=== PATIENT | female | born 1995 | race Two or more races ===

== ENCOUNTER 2024-02-24 10:48 | Emergency (ER) | payer MEDICAID, OTHER ==
[~2024-02-24] VITALS: Ht 157.5 cm; Wt 65.7 kg
[2024-02-24 12:39] VITALS: BP 138/88; PULSE 88; RESP 18; TEMP 98.7; O2SAT 100
== END 2024-02-24 12:41 | disposition home or self-care (01) ==
LOC: ER 10:48
DX: S20.219A Contusion of unspecified front wall of thorax, initial encounter (principal); I49.9 Cardiac arrhythmia, unspecified; F12.10 Cannabis abuse, uncomplicated; W22.8XXA Striking against or struck by other objects, initial encounter; Y93.89 Activity, other specified; Y92.89 Other specified places as the place of occurrence of the external cause; Y99.8 Other external cause status
CPT/HCPCS: 71046

== ENCOUNTER 2025-02-23 19:06 | Emergency (ER) | payer MEDICAID ==
[~2025-02-23] VITALS: Ht 157.5 cm; Wt 61.3 kg
[2025-02-23 20:11] VITALS: BP 114/71; PULSE 91; RESP 16; TEMP 98.8; O2SAT 96
[2025-02-23 20:15] LABS: Urine Bacteria None Seen /hpf (None Seen)
[2025-02-23 20:30] LABS: Urine Blood Negative /uL (Negative); Urine Clarity Clear (Clear); Urine Color Light-Yellow (Yellow); Urine Protein, UAD Negative (Negative); Urine Specific Gravity 1.016 (1.001-1.035); Urine Squamous Epithelial Cell FEW /hpf (<5); Urine Urobilinogen Normal (Negative); Urine WBC < 1 /HPF (0-5)
[2025-02-23] MEDS: ACETAMINOPHEN 325 MG TAB PO ONE (20:50)
--- NOTE | 2025-02-23 21:00 | ED.PDOC ---
HPI (NEURO) HPI Comments 29 year old female presents to ER with complaints of headache x 3 days. Patient reports that she's been experiencing intermittent frontal headache with associated intermittent n/v with her headaches x 3 days. She rates her current pain a 10/10 diffuse to front of forehead without radiation. States she's taken Tylenol for her pain without relief. Patient also reports that she found out she was with an at home test in October of this year but never followed up with a provider with regards to her , denying any abdominal/pelvic pain or vaginal bleeding. Patient presents to ER ambulatory on arrival, alert oriented x4, with steady gait, in no distress with vitals stable. LMP 09/09/24. Denies fever, dizziness, vision changes, head injury, numbness/tingling or any further symptoms/complaints Chief Complaint: Headache Time Seen by MD: 20:04 Primary Care Provider: [facility] Reviewed Notes: Nurses Notes, Medications, Allergies Information Source: Patient Mode of Arrival: Ambulatory Past Medical History PAST MEDICAL HISTORY: HTN Past Medical History (Other): ADHD Surgical History: RADIATION CONTROL TECHNICIAN History: No Pertinent RADIATION CONTROL TECHNICIAN History LMP 09-08-25 Family History Family History: Unknown Social History Smoker: Non-Smoker Alcohol: Occasionally Drugs: Marijuana Lives In: Home Constitutional: denies: chills, diaphoresis, fatigue, fever, malaise, sweats, weakness, others EENTM: denies: blurred vision, double vision, ear bleeding, ear discharge, ear drainage, ear pain, ear ringing, eye pain, eye redness, hearing loss, mouth pa in, mouth swelling, nasal discharge, nose bleeding, nose congestion, nose pain, photophobia, tearing, throat pain, throat swelling, voice changes, others Respiratory: denies: cough, hemoptysis, orthopnea, SOB at rest, shortness of breath, SOB with excertion, stridor, wheezing, others Cardiovascular: denies: chest pain, dizzy spells, diaphoresis, Dyspnea on exertion, edema, irregular heart beat, left arm pain, lightheadedness, palpitations, PND, syncope, others Gastrointestinal: denies: abdomen distended, abdominal pain, blood streaked bowels, constipated, diarrhea, dysphagia, difficulty swallowing, hematemesis, melena, nausea, poor appetite, poor fluid intake, rectal bleeding, rectal pain, vomiting, others Genitourinary: reports: others (As stated in HPI) Neurological: denies: dizziness, fainting, headache, left sided numbness, left sided weakness, numbness, paresthesia, pre-existing deficit, right sided numbness, right sided weakness, seizure, speech problems, tingling, tremors, weakness, others Musculoskeletal: denies: back pain, gout, joint pain, joint swelling, muscle pain, muscle stiffness, neck pain, others Integumetry: denies: bruises, change in color, change in hair/nails, dryness, laceration, lesions, lumps, rash, wounds, others Allergic/Immunocompromised: denies: Difficulty Healing, Frequent Infections, Hives, Itching, others Hematologic/Lymphatic: denies: anemia, blood clots, easy bleeding, easy bruising, swollen glands, others Endocrine: denies: excessive hunger, excessive sweating, excessive thirst, excessive urination, flushing, intolerance to cold, intolerance to heat, unexplained weight gain, unexplained weight loss, others Psychiatric: denies: anxiety, bipolar disorder, depression, hopeless, panic disorder, schizophrenia, sleepless, suicidal, others Physical Exam General Appearance: No Apparent Distress HEENT: Normal ENT Inspection, PERRL/EOMI, Pharynx Normal, TMs Normal Neck: Full Range of Motion, Non-Tender, Normal Respiratory: Chest Non-Tender, Lungs Clear, No Accessory Muscle Use, No Respiratory Distress, Normal Breath Sounds Cardiovascular: No Murmur, No Gallop, Regular Rate/Rhythm Breast Exam: Deferred Gastrointestinal: Non Tender, No Pulsatile Mass, Soft Genitalia: Deferred Pelvic: Deferred Rectal: Deferred Extremities: Normal capillary refill, Normal range of motion Neurologic: Alert, mechanical engineering advisor II-XII nml as Tested, No Motor Deficits, Normal Affect, Normal Mood, No Sensory Deficits Cerebellar Function: Normal Reflexes: Normal Skin: Dry, Normal Color, Warm Lymphatic: No Adenopathy Was a procedure done? Was a procedure done?: No Sedation Sedation?: No Differential Diagnosis (SZ) Headache: Intracerebral Hemorrhage, Subarachnoid Hemorrhage, Subdural Hemorrhage X-Ray, Labs, Meds, VS Vital Signs Date Time Temp Pulse Resp B/P (MAP) Pulse Ox O2 Delivery O2 Flow Rate FiO2 02/23/25 20:11 98.8 91 16 114/71 (85) 96 98.8 02/23/25 20:11 Room Air* 0 21 02/23/25 19:48 98.8 91 16 114/71 (85) 96 98.8 Lab Test 02/23/25 20:49 02/23/25 20:14 Range/Units White Blood Count 6.8 4.4-10.8 10^3/uL Red Blood Count 3.55 L 4.0-5.20 10^6/uL Hemoglobin 12.1 L 12.2-16.2 g/dL Hematocrit 34.0 L 36.0-46.0 % Mean Corpuscular Volume 95.9 80.0-100.0 fL Mean Corpuscular Hemoglobin 34.0 H 28.0-32.0 pg Mean Corpuscular Hemoglobin Concent 35.5 32.0-36.0 g/dL Red Cell Distribution Width 12.2 11.8-14.3 % Platelet Count 311 140-450 10^3/uL Mean Platelet Volume 6.9 6.9-10.8 fL Neutrophils (%) (Auto) 69.2 37.0-80.0 % Lymphocytes (%) (Auto) 22.3 10.0-50.0 % Monocytes (%) (Auto) 6.5 0.0-12.0 % Eosinophils (%) (Auto) 1.4 0.0-7.0 % Basophils (%) (Auto) 0.6 0.0-2.0 % Neutrophils # (Auto) 4.7 1.6-8.6 10 ^3/uL Lymphocytes # (Auto) 1.5 0.4-5.4 10 ^3/uL Monocytes # (Auto) 0.4 0-1.3 10 ^3/uL Eosinophils # (Auto) 0.1 0-0.8 10 ^3/uL Basophils # (Auto) 0 0-0.2 10 ^3/uL Nucleated Red Blood Cells 0.0 % Sodium Level 141 136-145 mmol/L Potassium Level 4.0 3.5-5.1 mmol/L Chloride Level 107 98-107 mmol/L Carbon Dioxide Level 25 20-31 mmol/L Anion Gap 9 5-15 Blood Urea Nitrogen 9 9-23 mg/dL Creatinine 0.62 0.550-1.02 mg/dL Glomerular Filtration Rate Calc 124 >90 mL/min BUN/Creatinine Ratio 14.5 10.0-20.0 Serum Glucose 80 74-106 mg/dL Calcium Level 10.0 8.7-10.4 mg/dL Beta HCG, Quantitative 73416.3 H 1.5-4.2 mIU/mL Treponema pallidum Antibody Non-reactive Negative Urine Color Light-yellow Yellow Urine Clarity Clear Clear Urine pH 7.0 5.0-9.0 Urine Specific [place] 1.016 1.001-1.035 Urine Protein Negative Negative Urine Ketones Negative Negative Urine Blood Negative Negative /uL Urine Nitrite Negative Negative Urine Bilirubin Negative Negative Urine Urobilinogen Normal Negative mg/dL Urine Leukocyte Esterase Negative Negative /uL Urine RBC <1 0 - 4 /hpf Urine Microscopic WBC < 1 0-5 /HPF Urine Squamous Epithelial Cells Few <5 /hpf Urine Bacteria None seen None Seen /hpf Urine Glucose Normal Normal mg/dL Urine Test Positive Negative Current Medications Medications (Trade) Dose Ordered Sig/Rowena Route Start Time Stop Time Status Last Admin Acetaminophen (Tylenol Tablet) 650 mg ONCE ONCE PO 02/23/25 20:45 02/23/25 20:46 DC 02/23/25 20:50 [id number]: [id number] : 1995 LOC: ER ROOM / BED: / AGE / SEX: 29 / F ADM STATUS: REG ER SERVICE 39 ORDERING PHYSICIAN: KEITH SAN PROCEDURE(s): OBUS - OB ULTRASOUND COMP GTR 14 WKS REASON: well being, approx 24 weeks ORDER NUMBER(s): [id number], ACCESSION NUMBER(s): [id number] OB ULTRASOUND, LIMITED CLINICAL INDICATION: well being, approx 24 weeks TECHNIQUE: Multiple grayscale ultrasound and M-mode images were obtained of the pelvis for evaluation of intrauterine . COMPARISON: None FINDINGS: A single living fetus is seen in breech presentation. Biparietal diameter: 2.98 cm (15 weeks, 3 days) Head Circumference: 11.03 cm (13 weeks, 2 days) Abdomen Circumference: 8.02 cm (14 weeks, 3 days) Femur Length: 1.43 cm (14 weeks, 2 days) Estimated weight: 97.4 grams (+/- 14.61 grams). Placenta: Posterior. Amniotic fluid: Visibly normal. Cervical length is 4.2 cm and closed. heart rate: 155 beats/min. A complete anatomic survey was not performed on this exam. IMPRESSION: Single living intrauterine with an estimated gestational age of 14 weeks, 6 days, corresponding to an estimated date of delivery of 08/18/2025. ATED BY: JOHN HERNANDEZ MD DICTATED DATE/TIME: 02/23/252134 SIGNED BY: JOHN HERNANDEZ MD SIGNED DATE/TIME: 02/23/252134 CC: Urine reviewed-positive Urinalysis reviewed without any significant abnormalities CBC reviewed-without any significant abnormalities BMP reviewed- unremarkable Syphilis screening ordered and reviewed, non-reactive- patient denied any known exposure to syphillis but states she has not followed-up with a provider with regards to current OB ultrasound reviewed Tylenol 650 mg p.o. ordered Patient reported improvement in symptoms and in no distress prior to discharge Patient provided information with regards to local OBGYNs and advised to follow up in 1-2 days Advised to follow up with PCP in 1-2 days Patient alert and oriented x4 prior to discharge. Patient verbalized understanding and agreeable with current plan of care Advised to return to ER immediately if symptoms worsen Images Reviewed?: Images reviewed and evaluated by me Time of 1ST Reevaluation: 20:44 Reevaluation 1ST: N/A Time of 2ND Reevaluation: 21:48 Reevaluation 2ND: Improved Patient Education/Counseling: Diagnosis, Treatment, Prognosis, Need For Follow Up Family Education/Counseling: No Family Present Departure 1 Departure Time of Disposition: 21:50 Impression: Primary Impression: Tension headache Additional Impression: Second trimester Disposition: 01 HOME / SELF CARE / HOMELESS Condition: Stable Discharged With: Self Critical Care Note Critical Care Time?: No Stability Stability form required: No Heart Score Heart Score: Heart Score Response (Comments) Value History N/A 0 EKG N/A 0 Age N/A 0 Risk Factors N/A 0 Troponin N/A 0 Total 0 KEITH SAN Feb 23, 2025 21:00
[2025-02-23 21:08] LABS: Basophils # (auto) 0 10 ^3/uL (0-0.2); Eosinophils # (auto) 0.1 10 ^3/uL (0-0.8); White Blood Cell 6.8 10^3/uL (4.4-10.8)
[2025-02-23 21:10] LABS: Basophils % (auto) 0.6 % (0.0-2.0); Eosinophils % (auto) 1.4 % (0.0-7.0); Hemoglobin 12.1 g/dL (12.2-16.2); Lymphocytes # (auto) 1.5 10 ^3/uL (0.4-5.4); Lymphocytes % (auto) 22.3 % (10.0-50.0); Mean Corpuscular Hgb Conc. 35.5 g/dL (32.0-36.0); Mean Corpuscular Volume 95.9 fL (80.0-100.0); Monocytes # (auto) 0.4 10 ^3/uL (0-1.3); Monocytes % (auto) 6.5 % (0.0-12.0); Neutrophils # (auto) 4.7 10 ^3/uL (1.6-8.6); Neutrophils % (auto) 69.2 % (37.0-80.0); Platelet Count (auto) 311 10^3/uL (140-450); Red Blood Cells 3.55 10^6/uL (4.0-5.20); Red Cell Distribution Width 12.2 % (11.8-14.3)
[2025-02-23 21:11] LABS: Chloride 107 mmol/L (98-107); Sodium 141 mmol/L (136-145)
[2025-02-23 21:12] LABS: Anion Gap 9 (5-15); Carbon Dioxide 25 mmol/L (20-31)
[2025-02-23 21:17] LABS: BUN/Creatinine Ratio 14.5 (10.0-20.0); Glucose 80 mg/dL (74-106)
[2025-02-23 21:19] LABS: Blood Urea Nitrogen 9 mg/dL (9-23)
--- NOTE | 2025-02-23 21:38 | DVH ---
OB ULTRASOUND, LIMITED CLINICAL INDICATION: well being, approx 24 weeks TECHNIQUE: Multiple grayscale ultrasound and M-mode images were obtained of the pelvis for evaluation of intrauterine . COMPARISON: None FINDINGS: A single living fetus is seen in breech presentation. Biparietal diameter: 2.98 cm (15 weeks, 3 days) Head Circumference: 11.03 cm (13 weeks, 2 days) Abdomen Circumference: 8.02 cm (14 weeks, 3 days) Femur Length: 1.43 cm (14 weeks, 2 days) Estimated weight: 97.4 grams (+/- 14.61 grams). Placenta: Posterior. Amniotic fluid: Visibly normal. Cervical length is 4.2 cm and closed. heart rate: 155 beats/min. A complete anatomic survey was not performed on this exam. IMPRESSION: Single living intrauterine with an estimated gestational age of 14 weeks, 6 days, corresp onding to an estimated date of delivery of 08/18/2025.
== END 2025-02-23 21:56 | disposition home or self-care (01) ==
LOC: ER 19:06
DX: O99.352 Diseases of the nervous system complicating pregnancy, second trimester (principal); O16.2 Unspecified maternal hypertension, second trimester; O99.312 Alcohol use complicating pregnancy, second trimester; O99.322 Drug use complicating pregnancy, second trimester; G44.209 Tension-type headache, unspecified, not intractable; F90.9 Attention-deficit hyperactivity disorder, unspecified type; F10.90 Alcohol use, unspecified, uncomplicated; F12.90 Cannabis use, unspecified, uncomplicated; Z3A.14 14 weeks gestation of pregnancy; Z98.890 Other specified postprocedural states; Y90.9 Presence of alcohol in blood, level not specified
CPT/HCPCS: 36415; 76805; 80048; 81001; 81025; 84702; 85025; 86780

== ENCOUNTER 2025-07-04 11:50 | Observation (INO) | payer MEDICAID ==
--- NOTE | 2025-07-04 15:38 | DVH ---
OB ULTRASOUND, LIMITED CLINICAL INDICATION: GDMA1 TECHNIQUE: Multiple grayscale ultrasound and M-mode images were obtained of the pelvis for evaluation of intrauterine . COMPARISON: US OB ULTRASOUND COMP GTR 14 WKS on DOS: 02/23/25 FINDINGS: A single living fetus is seen in cephalic presentation. breathin movements: 2 tone: 2 Amniotic fluid: 2 Placenta: Posterior. Amniotic fluid: Visibly normal. EVER 12.8 cm heart rate: 138 beats/min. A complete anatomic survey was not performed on this exam. IMPRESSION: 1. Biophysical profile: 04/23
--- NOTE | 2025-07-05 06:13 | DVHDS2 ---
Discharge Summary Date of Admission Jul 04, 2025 at 14:22 Date of Discharge: Jul 04, 2025 Admitting Diagnosis GDM A1 33 weeks here for routine NST BPP both performed reassuring Wounds: None Labs/Diagnostic Data: Laboratory Results Test 07/04/25 15:03 POC Glucose 138 mg/dl (70-106) Brief Hx & Hospital Course: NST BPP performed reassuring Operations or Procedures NST BPP Condition at Discharge: Good Final Diagnosis/Problems List 33 weeks GDM A1 Discharge Disposition: Home Discharge Instruct/Medications Diet: Consistent carbohydrate Activity: No Restrictions, As Tolerated Follow Up/Referral: Kick count sleep precautions carbohydrate diet limited Discharge Statement: "Patient was advised to return to the ER or call 911 if any headaches, d izziness, shortness of breath, chest pain, abdominal pain, bleeding, fevers, or worsening of medical condition. Patient was counseled about treatment plan, medications, possible side effects, patientverbalized understanding. All questions were answered to the best of my ability. This discharge took greater then 30 minutes in planning, reviewing documentation, counseling the patient, and discussing with other team members." ASSESSMENT ASSESSMENT Assessment Visit Coding OBGYN Date of Service: Jul 04, 2025 Billing Provider: LYNN CHARLES DO TACTICAL DEBRIEFER Common Visit Codes: 16986-JKX/OBS SAME DATE (LOW), 79512-DZE/OBS SAME DATE (MOD) TACTICAL DEBRIEFER Procedure Codes: 76744-79- NON-STRESS TEST LYNN CHARLES DO Jul 05, 2025 06:13
== END 2025-07-04 15:43 | disposition home or self-care (01) ==
LOC: LDRP 14:22
PROVIDERS: ADMIT Obstetrics & Gynecology; ATTEND Obstetrics & Gynecology
DX: O24.419 Gestational diabetes mellitus in pregnancy, unspecified control (principal); Z3A.33 33 weeks gestation of pregnancy; Z98.890 Other specified postprocedural states
CPT/HCPCS: 59025; 76819; 81002; 82948; 82962; 94760; G0378

== ENCOUNTER 2025-07-09 05:42 | Observation (INO) | payer MEDICAID ==
--- NOTE | 2025-07-09 16:19 | DVHDS2 ---
Physician Discharge Progress N Final Diagnosis: GDM 34WKS Operations or Procedures: Operations or Procedures NST REACTIVE REVIWED,SONO Condition on Discharge: Good Disposition: Home Discharge Instructions: Diet: Consistent carbohydrate Activity: No Restrictions, As Tolerated Medications: NA Follow Up Care: Specialist: 1W Discharge Statement: "Patient was advised to return to the ER or call 911 if any headaches, dizziness, shortness of breath, chest pain, abdominal pain, bleeding, fevers, or worsening of medical condition. Patient was counseled about treatment plan, medications, possible side effects, patientverbalized understanding. All questions were answered to the best of my ability. This discharge took greater then 30 minutes in planning, reviewing documentation, counseling the patient, and discussing with other team members." Visit Coding OBGYN Date of Service: Jul 09, 2025 Billing Provider: PATTI STEPHENS DO VIBRATOR EQUIPMENT TESTER Common Visit Codes: 73117-JZNUQSF OBS CARE (HIGH) VIBRATOR EQUIPMENT TESTER Procedure Codes: 68721-96- NON-STRESS TEST PATTI STEPHENS DO Jul 09, 2025 16:19
--- NOTE | 2025-07-09 16:37 | DVH ---
BIOPHYSICAL PROFILE HISTORY: GDMA1 TECHNIQUE: Multiple real-time grayscale sonographic images through the gravid uterus of the fetus wi th duplex Doppler color flow. FINDINGS: BIOPHYSICAL PROFILE: breathing score: 2 movement score: 2 tone score: 2 Quantitative EVER score: 2 Total score: 8 out of 8 The placenta is fundally positioned. EVER 25.6 cm. lie cephalic. heart rate 135 beats per minute. IMPRESSION: Biophysical profile score: 8 out of 8 EVER 25.6 cm, previously measuring at 12.8 cm. Correlate for polyhydramnios.
[2025-07-09] MEDS ORDERED: PREN-96 PO (16:39)
== END 2025-07-09 16:46 | disposition home or self-care (01) ==
LOC: UNDOADMOB 15:05 → LDRP 15:05
PROVIDERS: ADMIT Obstetrics & Gynecology; ATTEND Obstetrics & Gynecology
DX: O24.419 Gestational diabetes mellitus in pregnancy, unspecified control (principal); Z3A.34 34 weeks gestation of pregnancy; Z98.890 Other specified postprocedural states
CPT/HCPCS: 59025; 76819; 81002; 82948; 82962; 94760; G0378

== ENCOUNTER 2025-07-13 06:22 | Observation (INO) | payer MEDICAID ==
[~2025-07-13 06:22] MED LIST: PREN-96 PO
--- NOTE | 2025-07-13 17:24 | DVHDS2 ---
Physician Discharge Progress N Final Diagnosis: testing for GDMA1/poly Operations or Procedures: Operations or Procedures 30yo IUP@34.6wks VSS NST reactive BPP 8/8 per RN FKC/PTL/preE precautions reviewed Dr. Alvarez consulted, agrees with POC. Condition on Discharge: Stable Disposition: Home Discharge Instructions: Diet: Consistent carbohydrate Activity: No Restrictions, As Tolerated Medications: see med list Follow Up Care: Specialist: f/u in 3 days Discharge Statement: "Patient was advised to return to the ER or call 911 if any headaches, dizziness, shortness of breath, chest pain, abdominal pain, bleeding, fevers, or worsening of medical condition. Patient was counseled about treatment plan, medications, possible side effects, patientverbalized understanding. All questions were answered to the best of my ability. This discharge took greater then 30 minutes in planning, reviewing documentation, counseling the patient, and discussing with other team members." Visit Coding OBGYN Date of Service: Jul 13, 2025 Billing Provider: HERMINIO SEGOVIA CNM ENGINE PILOT Common Visit Codes: 26311-KUKEXZL OBS CARE (HIGH) ENGINE PILOT Procedure Codes: 06158-52- NON-STRESS TEST HERMINIO SEGOVIA CNM Jul 13, 2025 17:24
--- NOTE | 2025-07-13 20:45 | DVH ---
BIOPHYSICAL PROFILE HISTORY: GDMA1/poly Comparison: 07/13/2025 TECHNIQUE: Multiple transabdominal real-time grayscale sonographic images through the gravid uterus of the fetus with duplex Doppler color flow and M-mode spectral analysis FINDINGS: BIOPHYSICAL PROFILE: breathing score: 2 movement score: 2 tone score: 2 Quantitative EVER score: 2 (EVER: 24.5 Cm.) Total score: 8 The cervix not well-visualized Single live fetus in cephalic presentation. heart rate 149 beats per minute. Grade 1 posterior fundal placenta without previa or abruption IMPRESSION: Biophysical profile score: 8 /8 Borderline polyhydramnios 24.5 cm. Coffee Roaster documented notification of patient's nurse Kim.
== END 2025-07-13 16:34 | disposition home or self-care (01) ==
LOC: UNDOADMOB 15:09 → LDRP 15:09
PROVIDERS: ADMIT Obstetrics & Gynecology; ATTEND Obstetrics & Gynecology
DX: O24.419 Gestational diabetes mellitus in pregnancy, unspecified control (principal); Z3A.34 34 weeks gestation of pregnancy; Z79.899 Other long term (current) drug therapy
CPT/HCPCS: 59025; 76819; 81002; 82948; 82962; 94760; G0378

== ENCOUNTER 2025-07-16 15:06 | Observation (INO) | payer MEDICAID ==
--- NOTE | 2025-07-16 16:15 | DVH ---
BIOPHYSICAL PROFILE HISTORY: GDMA1/Poly TECHNIQUE: Multiple transabdominal real-time grayscale sonographic images through the gravid uterus of the fetus with duplex Doppler color flow and M-mode spectral analysis FINDINGS: BIOPHYSICAL PROFILE: breathing score: 2 movement score: 2 tone score: 2 Quantitative EVER score: 2 (#1AFI: 19.6 Cm, #2 EVER: 17.2 cm MVP: 6.1 cm.) Total score: 8/8 The cervix obscured by head Single live fetus in cephalic presentation. heart rate 143 beats per minute. Posterior Grade 2 placenta without previa or abruption Single live fetus at 35 weeks 2 days Biophysical profile score 8/8 corresponding to an BONNY of 08/18/2025 IMPRESSION: 1. Biophysical profile score: 8/8
== END 2025-07-16 16:29 | disposition home or self-care (01) ==
LOC: LDRP 15:06
PROVIDERS: ADMIT Obstetrics & Gynecology; ATTEND Obstetrics & Gynecology
DX: O24.419 Gestational diabetes mellitus in pregnancy, unspecified control (principal); Z3A.35 35 weeks gestation of pregnancy; Z98.890 Other specified postprocedural states
CPT/HCPCS: 59025; 76819; 81002; 82948; 82962; 94760; G0378

== ENCOUNTER 2025-07-20 06:56 | Observation (INO) | payer MEDICAID ==
--- NOTE | 2025-07-23 17:09 | DVH ---
BIOPHYSICAL PROFILE HISTORY: GDMA1, POLY TECHNIQUE: Multiple real-time grayscale sonographic images through the gravid uterus of the fetus with duplex Doppler color flow. FINDINGS: BIOPHYSICAL PROFILE: breathing score: 2 movement score: 2 tone score: 2 Quantitative EVER score: 2 Total score: 8 out of 8 Single live intrauterine . heart rate 141 beats per minute. Cephalic lie. Placenta fundally positioned. EVER 18.5 cm. IMPRESSION: Biophysical profile score: 8 out of 8
--- NOTE | 2025-07-23 18:48 | DVHDS2 ---
Physician Discharge Progress N Final Diagnosis: GDMA1 Operations or Procedures: Operations or Procedures NST/BPP/EVER all NORMAL Commentary: Commentary PATIENT: SHERRY [place] ACCT: [id number] UNIT: [id number] : 1995 [facility] / BED: TRIAGE3 / A AGE / SEX: 30 / F ADM STATUS: DIS IN SERVICE 1505 ORDERING PHYSICIAN: EDDIE HARMAN DO PROCEDURE(s): BPP - BIOPHYSICAL PROFILE REASON: GDMA1, POLY ORDER NUMBER(s): [id number], ACCESSION NUMBER(s): [id number] BIOPHYSICAL PROFILE HISTORY: GDMA1, POLY TECHNIQUE: Multiple real-time grayscale sonographic images through the gravid uterus of the fetus with duplex Doppler color flow. FINDINGS: BIOPHYSICAL PROFILE: breathing score: 2 movement score: 2 tone score: 2 Quantitative EVER score: 2 Total score: 8 out of 8 Single live intrauterine . heart rate 141 beats per minute. Cephalic lie. Placenta fundally positioned. EVER 18.5 cm. IMPRESSION: Biophysical profile score: 8 out of 8 ATED BY: NIGEL CARTER MD Condition on Discharge: Stable Disposition: Home Discharge Instructions: Diet: Regular, Consistent carbohydrate Activity: No Restrictions, As Tolerated Follow Up/Referral: As scheduled Medications: N/A Follow Up Care: Discharge Statement: "Patient was advised to return to the ER or call 911 if any headaches, dizziness, shortness of breath, chest pain, abdominal pain, bleeding, fevers, or worsening of medical condition. Patient was counseled about treatment plan, medications, possible side effects, patientverbalized understanding. All questions were answered to the best of my ability. This discharge took greater then 30 minutes in planning, reviewing documentation, counseling the patient, and discussing with other team members." Visit Coding OBGYN Date of Service: Jul 23, 2025 Billing Provider: EDDIE HARMAN DO CARBON SETTER Common Visit Codes: 35822-ALT/OBS SAME DATE (HIGH) CARBON SETTER Procedure Codes: 60761-67- NON-STRESS TEST EDDIE HARMAN DO Jul 23, 2025 18:48
== END 2025-07-23 17:10 | disposition home or self-care (01) ==
LOC: LDRP 07-23 15:00 → UNDOADMOB 07-23 15:00 → LDRP 07-23 15:06
PROVIDERS: ADMIT Obstetrics & Gynecology; ATTEND Obstetrics & Gynecology
DX: O24.419 Gestational diabetes mellitus in pregnancy, unspecified control (principal); O40.3XX0 Polyhydramnios, third trimester, not applicable or unspecified; Z3A.36 36 weeks gestation of pregnancy; Z98.890 Other specified postprocedural states
CPT/HCPCS: 59025; 76819; 81002; 82948; 94760; G0378

== ENCOUNTER 2025-07-27 06:15 | Observation (INO) | payer MEDICAID ==
--- NOTE | 2025-07-27 18:23 | DVH ---
BIOPHYSICAL PROFILE HISTORY: GDMA1/POLY TECHNIQUE: Multiple transabdominal real-time grayscale sonographic images through the gravid uterus of the fetus with duplex Doppler color flow and M-mode spectral analysis FINDINGS: BIOPHYSICAL PROFILE: breathing score: 2 movement score: 2 tone score: 2 Quantitative EVER score: 2 (EVER: 11.43 cm, MVP: 4.52 cm.) Total score: 8/8 The cervix Single live fetus in vertex presentation. heart rate 178 beats per minute. Posterior fundal Grade 2 placenta without previa or abruption Single live fetus at 36 weeks 6 days Biophysical profile score 8/8 corresponding to an BONNY of 08/18/2025 Estimated weight not calculated g IMPRESSION: 1. Biophysical profile score: 8/8 2. FHR: 178 BPM 3. No other measurements given
--- NOTE | 2025-07-27 20:04 | DVHDS2 ---
Physician Discharge Progress N Final Diagnosis: testing for GDM A1 Operations or Procedures: Operations or Procedures S- 30yo IUP at 36/6 weeks, here for testing for GDM A1 O- VSS NST reactive BPP 8/8 A- 30yo IUP at 36/6 weeks GDM A1 P- D/C home kick counts, preeclampsia, and labor precautions reviewed Dr. Alvarez consulted and agrees with plan of care Other Interventions Other Interventions [place] [id number] Ph: [phone] DIAGNOSTIC IMAGING Diagnostic Imaging Report : [id number] Signed PATIENT: SHERRY [place] ACCT: [id number] UNIT: [id number] : 1995 LOC: [facility] ROOM / BED: TRIAGE1 / A AGE / SEX: 30 / F ADM STATUS: ADM IN SERVICE 47 ORDERING PHYSICIAN: HERMINIO SEGOVIA CNM PROCEDURE(s): BPP - BIOPHYSICAL PROFILE REASON: GDMA1/POLY ORDER NUMBER(s): [id number], ACCESSION NUMBER(s): [id number] BIOPHYSICAL PROFILE HISTORY: GDMA1/POLY TECHNIQUE: Multiple transabdominal real-time grayscale sonographic images through the gravid uterus of the fetus with duplex Doppler color flow and M-mode spectral analysis FINDINGS: BIOPHYSICAL PROFILE: breathing score: 2 movement score: 2 tone score: 2 Quantitative EVER score: 2 (EVER: 11.43 cm, MVP: 4.52 cm.) Total score: 8/8 The cervix Single live fetus in vertex presentation. heart rate 178 beats per minute. Posterior fundal Grade 2 placenta without previa or abruption Single live fetus at 36 weeks 6 days Biophysical profile score 8/8 corresponding to an BONNY of 08/18/2025 Estimated weight not calculated g IMPRESSION: 1. Biophysical profile score: 8/8 2. FHR: 178 BPM 3. No other measurements given ATED BY: JADE MEDINA Jr., DO DICTATED DATE/TIME: 07/27/251820 SIGNED BY: JADE MEDINA Jr., DO SIGNED DATE/TIME: 11/11/25 1821 CC: Condition on Discharge: Stable Disposition: Home Discharge Instructions: Diet: Consistent carbohydrate Activity: No Restrictions, As Tolerated Medications: see med list Follow Up Care: Specialist: Follow up in one week Discharge Statement: "Patient was advised to return to the ER or call 911 if any headaches, dizziness, shortness of breath, chest pain, abdominal pain, bleeding, fevers, or worsening of medical condition. Patient was counseled about treatment plan, medications, possible side effects, patientverbalized understanding. All questions were answered to the best of my ability. This discharge took greater then 30 minutes in planning, reviewing documentation, counseling the patient, and discussing with other team members." Visit Coding OBGYN Date of Service: Jul 27, 2025 Billing Provider: HERMINIO SEGOVIA CNM TIMBER SELECTOR Common Visit Codes: 04966-YDUSFBP OBS CARE (HIGH) TIMBER SELECTOR Procedure Codes: 22116-66- NON-STRESS TEST HERMINIO SEGOVIA CNM Jul 27, 2025 20:04
== END 2025-07-27 19:12 | disposition home or self-care (01) ==
LOC: LDRP 17:45
PROVIDERS: ADMIT Obstetrics & Gynecology; ATTEND Obstetrics & Gynecology
DX: O24.419 Gestational diabetes mellitus in pregnancy, unspecified control (principal); Z3A.36 36 weeks gestation of pregnancy; Z98.890 Other specified postprocedural states
CPT/HCPCS: 59025; 76819; 81002; 82948; 82962; 94760; G0378

== ENCOUNTER 2025-08-03 06:10 | Observation (INO) | payer MEDICAID ==
--- NOTE | 2025-08-03 16:17 | DVH ---
BIOPHYSICAL PROFILE HISTORY: GDMA1/Poly TECHNIQUE: Multiple real-time grayscale sonographic images through the gravid uterus of the fetus with duplex Doppler color flow. FINDINGS: BIOPHYSICAL PROFILE: breathing score: 2 movement score: 2 tone score: 2 Quantitative EVER score: 2 Total score: 8 out of 8 Single live intrauterine . Cephalic lie. Placenta fundally positioned. EVER 13.8 cm. heart rate of 143 beats per minute. IMPRESSION: Biophysical profile score: 8 out of 8 EVER 13.8 cm.
--- NOTE | 2025-08-03 18:52 | DVHDS2 ---
Physician Discharge Progress N Final Diagnosis: testing for GDM, A1 Operations or Procedures: Operations or Procedures 30yo IUP@37.6wks VSS per RN NST reactive per RN FKC/PreE/LABOR precautions reviewed Other Interventions Other Interventions [address] [address] Ph: [phone] DIAGNOSTIC IMAGING Diagnostic Imaging Report : [id number] Signed PATIENT: SHERRY [place] ACCT: [id number] UNIT: [id number] : 1995 LOC: [facility] ROOM / BED: LD1 / A AGE / SEX: 30 / F ADM STATUS: ADM IN SERVICE 1524 ORDERING PHYSICIAN: HERMINIO SEGOVIA CNM PROCEDURE(s): BPP - BIOPHYSICAL PROFILE REASON: GDMA1/Poly ORDER NUMBER(s): [id number], ACCESSION NUMBER(s): [id number] BIOPHYSICAL PROFILE HISTORY: GDMA1/Poly TECHNIQUE: Multiple real-time grayscale sonographic images through the gravid u terus of the fetus with duplex Doppler color flow. FINDINGS: BIOPHYSICAL PROFILE: breathing score: 2 movement score: 2 tone score: 2 Quantitative EVER score: 2 Total score: 8 out of 8 Single live intrauterine . Cephalic lie. Placenta fundally positioned. EVER 13.8 cm. heart rate of 143 beats per minute. IMPRESSION: Biophysical profile score: 8 out of 8 EVER 13.8 cm. ATED BY: NIGEL CARTER MD DICTATED DATE/TIME: 08/03/251619 SIGNED BY: NIGEL CARTER MD SIGNED DATE/TIME: 08/03/25 162 CC: Condition on Discharge: Stable Disposition: Home Discharge Instructions: Diet: Consistent carbohydrate Activity: No Restrictions, As Tolerated Follow Up/Referral: as scheduled Medications: see med list Follow Up Care: Specialist: f/u in 1 wk Discharge Statement: "Patient was advised to return to the ER or call 911 if any headaches, dizziness, shortness of breath, chest pain, abdominal pain, bleeding, fevers, or worsening of medical condition. Patient was counseled about treatment plan, medications, possible side effects, patientverbalized understanding. All questions were answered to the best of my ability. This discharge took greater then 30 minutes in planning, reviewing documentatio n, counseling the patient, and discussing with other team members." Visit Coding OBGYN Date of Service: Aug 03, 2025 Billing Provider: HERMINIO SEGOVIA CNM AIRCRAFT MAGNETO MECHANIC Common Visit Codes: [id number]-[id number] OBS CARE (HIGH) AIRCRAFT MAGNETO MECHANIC Procedure Codes: 93319-96- NON-STRESS TEST HERMINIO SEGOVIA CNM Aug 03, 2025 18:52
== END 2025-08-03 17:14 | disposition home or self-care (01) ==
LOC: UNDOADMOB 15:07 → LDRP 15:07 → UNDODISOB 17:14
PROVIDERS: ADMIT Obstetrics & Gynecology; ATTEND Obstetrics & Gynecology
DX: O24.419 Gestational diabetes mellitus in pregnancy, unspecified control (principal); Z3A.37 37 weeks gestation of pregnancy; Z98.890 Other specified postprocedural states
CPT/HCPCS: 59025; 76819; 81002; 82948; 82962; 94760; G0378

== ENCOUNTER 2025-08-11 13:02 | Observation (INO) | payer MEDICAID ==
--- NOTE | 2025-08-11 13:58 | DVH ---
BIOPHYSICAL PROFILE HISTORY: GDMA1 TECHNIQUE: Multiple transabdominal real-time grayscale sonographic images through the gravid uterus of the fetus with duplex Doppler color flow and M-mode spectral analysis FINDINGS: BIOPHYSICAL PROFILE: breathing score: 2 movement score: 2 tone score: 2 Quantitative EVER score: 2 (EVER: 10.9 Cm.) Total score: 8 The cervix not well visualized Single live fetus in cephalic presentation. heart rate 146 beats per minute. Grade 2 fundal placenta without previa or abruption. IMPRESSION: Biophysical profile score: 8
--- NOTE | 2025-08-12 07:14 | DVHDS2 ---
Physician Discharge Progress N Final Diagnosis: preop 37wks Operations or Procedures: Operations or Procedures nst reactive reviwed,sono Condition on Discharge: Good Disposition: Home Discharge Instructions: Diet: Regular Activity: No Restrictions, As Tolerated Medications: na Follow Up Care: Specialist: 2d Discharge Statement: "Patient was advised to return to the ER or call 911 if any headaches, dizziness, shortness of breath, chest pain, abdominal pain, bleeding, fevers, or worsening of medical condition. Patient was counseled about treatment plan, medications, possible side effects, patientverbalized understanding. All questions were answered to the best of my ability. This discharge took greater then 30 minutes in planning, reviewing document ation, counseling the patient, and discussing with other team members." Visit Coding OBGYN Date of Service: Aug 11, 2025 Billing Provider: PATTI STEPHENS DO API DEVELOPER Common Visit Codes: [id number] INP/OBS CARE (HIGH) API DEVELOPER Procedure Codes: 75679-69- NON-STRESS TEST PATTI STEPHENS DO Aug 12, 2025 07:14
== END 2025-08-11 14:57 | disposition home or self-care (01) ==
LOC: LDRP 13:02
PROVIDERS: ADMIT Obstetrics & Gynecology; ATTEND Obstetrics & Gynecology
DX: O24.419 Gestational diabetes mellitus in pregnancy, unspecified control (principal); Z3A.37 37 weeks gestation of pregnancy; Z98.890 Other specified postprocedural states
CPT/HCPCS: 59025; 76819; 81002; 82948; 82962; 94760; A4649; G0378

== ENCOUNTER 2025-08-13 04:59 | Inpatient (IN) | payer MEDICAID ==
[2025-08-11 14:03] LABS: Nucleated Red Blood Cells % 0.3 %
[2025-08-11 14:05] LABS: Hematocrit 30.0 % (36.0-46.0); Hemoglobin 9.8 g/dL (12.2-16.2); Mean Corpuscular Hemoglobin 26.8 pg (28.0-32.0); Mean Corpuscular Volume 81.7 fL (80.0-100.0)
[2025-08-11 14:16] LABS: Albumin 3.7 g/dL (3.2-4.8); Anion Gap 10 (5-15); BUN/Creatinine Ratio 9.1 (10.0-20.0); Calcium 8.9 mg/dL (8.7-10.4); Carbon Dioxide 24 mmol/L (20-31); Chloride 106 mmol/L (98-107); Glucose 96 mg/dL (74-106); Potassium 3.8 mmol/L (3.5-5.1); Sodium 140 mmol/L (136-145); Total Protein 6.2 g/dL (5.7-8.2)
[2025-08-11 14:17] LABS: Bilirubin, Total 0.6 mg/dL (0.2-1.0)
[2025-08-11 14:18] LABS: INR 0.92 (0.9-1.15); Partial Thromboplastin Time 27.6 SEC (24.5-34.5); Prothrombin Time 9.8 sec (9.3-11.8)
[2025-08-11 14:23] LABS: Alanine Aminotransferase 9 U/L (7-40); Alkaline Phosphatase 298 U/L (46-116); Blood Urea Nitrogen 7 mg/dL (9-23)
[2025-08-11 18:08] LABS: Urine Protein, UAD Negative (Negative)
[2025-08-11 18:19] LABS: Cannabinoid Screen, Urine Neg (NEGATIVE)
[2025-08-11 18:23] LABS: Amphetamine Screen, Urine Neg (NEGATIVE); Barbiturate Scree,Urine Neg (NEGATIVE); Benzodiazephine Screen, Urine Neg (NEGATIVE); Cocaine Screen, Urine Neg (NEGATIVE); Opiate Scree,Urine Neg (NEGATIVE); Phencyclidine Screen, Urine Neg (NEGATIVE)
[2025-08-13] VITALS (17 sets, daily range): BP systolic 90–123; BP diastolic 55–88; PULSE 81–105; RESP 16–18; TEMP 97.6–98.1; O2SAT 96–100
[~2025-08-13] VITALS: Ht 157.5 cm; Wt 78.9 kg
[2025-08-13] MEDS ORDERED: SODIUM CITR/CITRIC ACID ORAL SOLN 30 ML PO ONE (05:15)
[2025-08-13] MEDS ORDERED: LACTATED RINGER'S 1,000 ML IV ONE (05:15)
[2025-08-13] MEDS ORDERED: METOCLOPRAMIDE HCL 5MG/ml INJ 2ml VIAL IV ONE (05:15)
[2025-08-13] MEDS ORDERED: IBUP-1456 PO (07:06)
[2025-08-13] MEDS ORDERED: HYDR-4072 PO (07:06)
[2025-08-13] MEDS ORDERED: DOCU-94 PO (07:06)
[2025-08-13] MEDS ORDERED: ceFAZolin 1GM/50ML 50 ML IV SCH (08:30)
[2025-08-13] MEDS ORDERED: ONDANSETRON HCL 4 MG/2 ML VIAL IV PRN ×3 (08:30→10:30)
[2025-08-13] MEDS ORDERED: LACT. RINGERS/OXYTOCIN 20UNITS 1,000 ML IV ONE (08:30)
[2025-08-13] MEDS ORDERED: ONDANSETRON HCL 4 MG/2 ML VIAL ONE (08:37)
[2025-08-13] MEDS: LACTATED RINGER'S 1,000 ML IV SCH (08:37)
[2025-08-13] MEDS ORDERED: MORPHINE SULF PF 5 MG/10 ML VIAL ONE (08:37)
[2025-08-13] MEDS: CLINDAMYCIN 900MG IV 50 ML IV SCH (08:37)
[2025-08-13] MEDS ORDERED: BUPIVACAINE/DEXTROSE MPF 0.75% 2 ML AMP IT ONE (08:37)
[2025-08-13] MEDS ORDERED: MIDAZOLAM HCL 2MG/2ML 2ml VIAL (1mg/ml) ONE (09:28)
--- NOTE | 2025-08-13 09:36 | DVHOP2 ---
Operative Report DATE OF OPERATION:08/13/25 PREOPERATIVE DIAGNOSES: [TERM PREG DESIRES RCS ,PREVIOUS CSX1 ,IUP AT 39WKS ] POSTOPERATIVE DIAGNOSES: [SAME ] OPERATION PERFORMED: Repeat Section FINDINGS: [F] infant. Apgars of [8] and [9]. Weight [6-11] [GOOD] crying tone. [CLEAR] amniotic fluid. Placenta and three-vessel were intact. Normal tubes, ovaries, and uterus. Moderate scar tissue. SURGEON: Yazmin Stephens D.O. MEDICATION MANAGER: automotive lube technician, [ENEDINA]. ANESTHESIOLOGIST: ANAI Claire M.D. ANESTHESIA: [Duramorph spinal, regional]. COMPLICATIONS: [NONE]. ESTIMATED BLOOD LOSS: [500] mL. BLOOD PRODUCTS USED: [NONE]. PROCEDURE IN DETAIL: The patient was taken to the operating room, placed in sitting position, and spinal was placed without difficulty. She was then prepped and draped in a sterile fashion. A low Pfannenstiel incision was made scapel. At this point, it was carried down through the rectus fascia, nicked in the midline, and carried laterally. The rectus muscles were in the midline. Peritoneum was identified and entered with sharp dissection. Vesicouterine peritoneum was taken off the lower uterine segment. A lower uterine transverse incision was made with a scalpel down the chorionic membranes, ruptured with hemostat. Infant was in vertex position. One hand was placed in the lower uterine segment. Head was essentially delivered spontaneously. Nose and mouth were bulb suctioned. Shoulders and torso were delivered without difficulty. Again, pharynx, nose, and mouth were re-suctioned with vigorous crying tone. Cord was cut. The infant was handed off to the awaiting Respiratory. At this point, umbilical blood sample was taken. Placenta was removed. Uterus was exteriorized, cleared off all clots and debris, irrigated, and closed with a double layer of 0-Vicryl. The vesicouterine peritoneum was incorporated into this closure. We had complete hemostasis. EBL was [500] mL. The instrument, lap, and sponge count was correct x1. The uterus was placed back into the peritoneum. The peritoneal cavity was re-inspected and the lower uterine incision with good hemostasis. We closed the peritoneum with running continuous of 2-0 Vicryl. The Rectus Fascia was closed with 0-PDS, running continuous, looped-0. The skin was closed undermined, irrigated, and close with cinthya. CONDITION: The patient's and the 's condition is stable and but guarded. Visit Coding OBGYN Date of Service: Aug 13, 2025 Billing Provider: YAZMIN STEPHENS DO SCHEDULE CLERK Common Visit Codes: [id number] INP/OBS CARE (HIGH) SCHEDULE CLERK Procedure Codes: [id number] DELIVERY ONLY YAZMIN STEPHENS DO Aug 13, 2025 09:36
--- NOTE | 2025-08-13 09:39 | POSTOP ---
Post-Operative Note Post-Operative Note Preop Diagnosis TERM PREG DESIRES RCS,IUP AT 39WKS Postop Diagnosis: SAME Operation performed RCS Specimen BABY GIRL,APGARS 8-9 Anesthesia: Regional Anesthesiologist: NUGYEN Blood Loss(fluid mgmt) 500ML Surgeon Patti Alvarez Senior Laboratory Technician ENEDINA Implant NA Complications & Mgmt NONE Additional Remarks H AND P DICTATED [id number] Date 08/13/25 Time 09:36 Visit Coding OBGYN Date of Service: Aug 13, 2025 Billing Provider: PATTI ALVAREZ DO MEAT SOAKER Common Visit Codes: [id number] INP/OBS CARE (HIGH) MEAT SOAKER Procedure Codes: [id number] DELIVERY ONLY PATTI ALVAREZ DO Aug 13, 2025 09:39
--- NOTE | 2025-08-13 09:44 | DVHHP ---
ADMIT DATE: 08/13/2025 CHIEF COMPLAINT: Desires repeat section. Early labor. HISTORY OF PRESENT ILLNESS: The patient is a 30-year-old 2, para 1, with due date of 08/18/2025, estimated gestational age of 39 weeks, admitted for repeat section. The patient has been having some contractions. She is noted to be in early labor. She also has GDM, well controlled. PAST MEDICAL HISTORY: None. PAST SURGICAL HISTORY: . SOCIAL HISTORY: None. FAMILY HISTORY: None. OBSTETRIC AND GYNECOLOGIC HISTORY: One section. ALLERGIES: No known drug allergies. REVIEW OF SYSTEMS: Consistent with HPI. PHYSICAL EXAMINATION: VITAL SIGNS: Stable, afebrile. HEENT: Within normal limits. CARDIOVASCULAR: Regular rate and rhythm. LUNGS: Clear to auscultation. BREASTS: Symmetrical. No masses. ABDOMEN: Gravid. Positive heart. PELVIC: 1 cm, 60%, -2. EXTREMITIES: No clubbing, cyanosis or edema. IMPRESSION: * Term , in early labor. * Desires repeat section. * Previous section x 1. * GDM. PLAN: Repeat section. Informed consent obtained. Risks and complications of surgery including infection, bleeding, hematoma formation, injury to bowel, bladder, surrounding organ, possibility of DVT, pulmonary embolism and risk of anesthesia discussed with patient. Options reviewed. All questions answered. The patient fully understands. She wishes to proceed with planned procedure. DO DERRELL Brumfield/CLINT/GEORGE TID: [id number] RECEIPT: [id number]
[2025-08-13] MEDS ORDERED: HYDROmorphone HCL 2 MG/ML VL/or syr IV PRN ×2 (10:15→10:30)
[2025-08-13] MEDS ORDERED: MEPERIDINE HCL (25 MG/ML) 1ML VIAL IV PRN (10:15)
[2025-08-13] MEDS ORDERED: diphenhydrAMINE HCL 50 MG/1 ML VL IV PRN (10:30)
[2025-08-13] MEDS ORDERED: NALBUPHINE HCL 10 MG/1ml INJECTION SUBCUT ONE (10:30)
[2025-08-13] MEDS ORDERED: NALOXONE HCL 0.4 MG/ML VIAL IV PRN (10:30)
[2025-08-13] MEDS: ACETAMINOPHEN IV 1000 MG/100ML (10MG/ML) IV PRN (11:50)
[2025-08-13] MEDS: CLINDAMYCIN 600MG IV 50 ML IV SCH (17:14)
[2025-08-13] MEDS: GUM (CHEWING) 1 GUM CHEW CHEW ONE (18:00)
[2025-08-13] MEDS: diphenhydrAMINE HCL 50 MG/1 ML VL IV ONE (18:00)
[2025-08-13] MEDS: KETOROLAC TROMETH 30 MG/ML 1ML VIAL IV PRN (19:00)
[2025-08-13 21:32] LABS: Hemoglobin 9.8 g/dL (12.2-16.2)
[2025-08-13 21:34] LABS: Hematocrit 30.7 % (36.0-46.0); Mean Corpuscular Hemoglobin 26.3 pg (28.0-32.0); Mean Corpuscular Volume 82.8 fL (80.0-100.0); Nucleated Red Blood Cells % 0.2 %
[2025-08-14] VITALS (15 sets, daily range): BP systolic 101–120; BP diastolic 59–87; PULSE 87–117; RESP 16–20; TEMP 98.2–98.7; O2SAT 96–100
[2025-08-14] MEDS: ACETAMINOPHEN IV 1000 MG/100ML (10MG/ML) IV PRN (03:13)
--- NOTE | 2025-08-14 03:15 | DVHPN2 ---
Progress Note Date Seen: Aug 14, 2025 Subjective S: Lochia minimal. Clear liquid diet well tolerated. Ambulating and voiding well w/o feeling dizzy or lightheaded. Pain relieved with analgesics. Passing flatus but no BM yet. w/o problem vital signs Vital Sign Date Time Temp Pulse Resp B/P (MAP) Pulse Ox O2 Delivery O2 Flow Rate FiO2 08/13/25 21:00 105 18 96 08/13/25 19:00 98.1 108/69 (82) 98.1 08/13/25 19:00 Room Air 08/13/25 10:09 5.0 Total Intake and Output 08/13/25 08/13/25 08/14/25 15:00 23:00 07:00 Output Total 2500 ml 600 ml Balance -2500 ml -600 ml medications Current Medications Medications Dose Ordered Sig/Rowena Route Start Time Stop Time Status Last Admin Dose Admin Lactated Ringer's 1,000 ml @ 125 mls/hr Q8H IV 08/13/25 05:15 08/13/25 08:37 125 MLS/HR Diphenhydramine HCl 25 mg Q4HP PRN IV 08/13/25 10:30 Ondansetron HCl 4 mg Q4HP PRN IV 08/13/25 10:30 Ketorolac Tromethamine 30 mg Q6HP PRN IV 08/13/25 10:30 08/18/25 10:29 08/13/25 19:00 30 MG Clindamycin Phosphate 50 ml @ 50 mls/hr Q8H IV 08/13/25 16:45 08/14/25 09:44 08/14/25 01:23 50 MLS/HR Acetaminophen 1,000 mg Q8HPRN PRN IV 08/13/25 19:15 08/14/25 06:01 laboratory and microbiology Laboratory Tests 08/13/25 21:08 08/11/25 13:38 Test 08/11/25 13:38 Range/Units Serum Glucose 96 74-106 mg/dL Objective A&O x3 NAD. Afebrile, VSS Chest: heart and lung sounds normal. Breasts: Nipples intact w/o cracks or soreness Abdomen: normal BS, soft, non-tender, no rebound or guarding, fundus firm @ U- 1, Lower abdominal Incision site with Sylke dressing steri-strips on, same clean, dry and intact. No edema, erythema or induration Extremities: no edema or tenderness Lochia - minimal Assessment/Plan 30yo now Post operative & ppd #1 s/p Repeat Section, doing well. h/o GDMA1 Blood Type: O Rh: Positive Breast feeding Rubella Immune Pain control with oral medications Bowel regimen: Increase fluid intake and fiber in diet, Laxative PRN PP BCM Plan: undecided Plan discussed with: Patient, Spouse Visit Coding OBGYN Date of Service: Aug 14, 2025 Billing Provider: BENJAMIN BOURGEOIS CNM WELDER OXYHYDROGEN Common Visit Codes: [id number] INP/OBS CARE(HIGH) BENJAMIN BOURGEOIS CNM Aug 14, 2025 03:15
[2025-08-14 08:56] LABS: Hemoglobin 9.7 g/dL (12.2-16.2)
[2025-08-14 08:57] LABS: Hematocrit 30.0 % (36.0-46.0); Mean Corpuscular Hemoglobin 26.2 pg (28.0-32.0); Mean Corpuscular Volume 80.7 fL (80.0-100.0); Nucleated Red Blood Cells % 0.3 %
[2025-08-14] MEDS ORDERED: HYDROcodone-ACET 5/325MG TAB PO PRN (10:15)
[2025-08-14] MEDS: HYDROcodone-ACET 5/325MG TAB PO PRN (11:56)
[2025-08-14] MEDS: SIMETHICONE 80 MG CHEWABLE TABLET PO SCH (11:56)
[2025-08-14] MEDS: IBUPROFEN 800 MG TAB PO PRN (15:30)
[2025-08-14] MEDS: DOCUSATE SOD 100 MG CAP PO SCH (21:46)
[2025-08-15 03:06] VITALS: BP 114/76; PULSE 96; RESP 18; TEMP 98.4; O2SAT 100
--- NOTE | 2025-08-15 04:53 | DVHPN2 ---
Progress Note Date Seen: Aug 15, 2025 Subjective S: > Lochia minimal. > Regular diet well tolerated. > Ambulating and voiding well w/o feeling dizzy or lightheaded. > Pain relieved with oral analgesics. > Passing flatus but no BM yet. > w/o problem > Desires and Requests to be discharged today vital signs Vital Sign Date Time Temp Pulse Resp B/P (MAP) Pulse Ox O2 Delivery O2 Flow Rate FiO2 08/15/25 03:06 98.4 96 18 114/76 (89) 100 98.4 08/14/25 19:00 Room Air 08/13/25 10:09 5.0 Total Intake and Output 08/14/25 08/14/25 08/15/25 15:00 23:00 07:00 Output Total 2200 ml Balance -2200 ml medications Current Medications Medications Dose Ordered Sig/Rowena Route Start Time Stop Time Status Last Admin Dose Admin Diphenhydramine HCl 25 mg Q4HP PRN IV 08/13/25 10:30 Ondansetron HCl 4 mg Q4HP PRN IV 08/13/25 10:30 Docusate Sodium 100 mg Q12HR PO 08/14/25 22:00 08/14/25 21:46 100 MG Dimethicone 80 mg QID PO 08/14/25 12:00 08/14/25 21:45 80 MG Ibuprofen 800 mg Q8HP PRN PO 08/14/25 10:15 08/14/25 15:30 800 MG Acetaminophen/ Hydrocodone Bitart 1 tab Q4HPRN PRN PO 08/14/25 10:15 Acetaminophen/ Hydrocodone Bitart 2 tab Q4HPRN PRN PO 08/14/25 10:15 08/15/25 02:57 2 TAB laboratory and microbiology Laboratory Tests 08/14/25 08:18 08/11/25 13:38 Test 08/11/25 13:38 Range/Units Serum Glucose 96 74-106 mg/dL Objective O: > A&O x3 NAD. > Afebrile, VSS > Chest: heart and lung sounds normal. > Breasts: Nipples intact w/o cracks or soreness > Abdomen: normal BS, soft, non-tender, no rebound or guarding, fundus firm @ U-1, > Lower abdominal Incision site with Sylke dressing on, same clean, dry and intact. No edema, erythema or induration > Extremities: no edema or tenderness > Lochia - minimal Assessment/Plan > 30yo now Post operative & ppd #2 s/p Repeat Section; doing well. > Anemia > GDMA1 > h/o Depression > Blood Type: O Rh: Positive > Breast feeding > Rubella Immune > Pain control with oral medications > Bowel regimen: Increase fluid intake and fiber in diet, Laxative PRN > PP BCM Plan:Depo injection > Discharge plan: May discharge home later today if condition remains stable Plan discussed with: Patient, Spouse Visit Coding OBGYN Date of Service: Aug 15, 2025 Billing Provider: BENJAMIN BOURGEOIS CNM CITY DESIGNER Common Visit Codes: [id number] INP/OBS CARE(HIGH) BENJAMIN BOURGEOIS CNM Aug 15, 2025 04:53
--- NOTE | 2025-08-15 05:05 | DVHDS2 ---
Discharge Summary Date of Admission Aug 13, 2025 at 04:59 Date of Discharge: Aug 15, 2025 Admitting Diagnosis > IUP at 39weeks > h/o Section; pt desires repeat Section > Anemia > GDMA1 Wounds: Low abdominal incision wound with Sylke dressing on, same C/D/I Labs/Diagnostic Data: Laboratory Results Test 08/14/25 08:18 08/13/25 05:38 08/11/25 17:59 08/11/25 17:58 White Blood Count 9.1 10^3/uL (4.4-10.8) Red Blood Count 3.71 10^6/uL (4.0-5.20) Hemoglobin 9.7 g/dL (12.2-16.2) Hematocrit 30.0 % (36.0-46.0) Mean Corpuscular Volume 80.7 fL (80.0-100.0) Mean Corpuscular Hemoglobin 26.2 pg (28.0-32.0) Mean Corpuscular Hemoglobin Concent 32.4 g/dL (32.0-36.0) Red Cell Distribution Width 15.1 % (11.8-14.3) Platelet Count 266 10^3/uL (140-450) Mean Platelet Volume 8.0 fL (6.9-10.8) Neutrophils (%) (Auto) 80.2 % (37.0-80.0) Lymphocytes (%) (Auto) 10.2 % (10.0-50.0) Monocytes (%) (Auto) 7.9 % (0.0-12.0) Eosinophils (%) (Auto) 1.0 % (0.0-7.0) Basophils (%) (Auto) 0.7 % (0.0-2.0) Neutrophils # (Auto) 7.3 10 ^3/uL (1.6-8.6) Lymphocytes # (Auto) 0.9 10 ^3/uL (0.4-5.4) Monocytes # (Auto) 0.7 10 ^3/uL (0-1.3) Eosinophils # (Auto) 0.1 10 ^3/uL (0-0.8) Basophils # (Auto) 0.1 10 ^3/uL (0-0.2) Nucleated Red Blood Cells 0.3 % POC Glucose 99 mg/dl (70-106) Urine Color Light-yellow (Yellow) Urine Clarity Clear (Clear) Urine pH 7.5 (5.0-9.0) Urine Specific Varnell 1.009 (1.001-1.035) Urine Protein Negative (Negative) Urine Ketones Negative (Negative) Urine Blood Negative /uL (Negative) Urine Nitrite Negative (Negative) Urine Bilirubin Negative (Negative) Urine Urobilinogen Normal mg/dL (Negative) Urine Leukocyte Esterase Negative /uL (Negative) Urine RBC <1 /hpf (0 - 4) Urine Microscopic WBC < 1 /HPF (0-5) Urine Squamous Epithelial Cells Few /hpf (<5) Urine Bacteria Few /hpf (None Seen) Urine Glucose Normal mg/dL (Normal) Urine Opiates Screen Neg (NEGATIVE) Urine Fentanyl Screen Neg (NEGATIVE) Urine Barbiturates Screen Neg (NEGATIVE) Urine Phencyclidine Screen Neg (NEGATIVE) Urine Amphetamines Screen Neg (NEGATIVE) Urine Benzodiazepines Screen Neg (NEGATIVE) Urine Cocaine Screen Neg (NEGATIVE) Urine Cannabinoids Screen Neg (NEGATIVE) Test 08/11/25 13:38 Prothrombin Time 9.8 sec (9.3-11.8) Prothrombin Time INR 0.92 (0.9-1.15) Activated Partial Thromboplast Time 27.6 SEC (24.5-34.5) Sodium Level 140 mmol/L (136-145) Potassium Level 3.8 mmol/L (3.5-5.1) Chloride Level 106 mmol/L (98-107) Carbon Dioxide Level 24 mmol/L (20-31) Anion Gap 10 (5-15) Blood Urea Nitrogen 7 mg/dL (9-23) Creatinine 0.77 mg/dL (0.550-1.02) Glomerular Filtration Rate Calc 106 mL/min (>90) BUN/Creatinine Ratio 9.1 (10.0-20.0) Serum Glucose 96 mg/dL (74-106) Calcium Level 8.9 mg/dL (8.7-10.4) Total Bilirubin 0.6 mg/dL (0.2-1.0) Aspartate Amino Transferase (AST) 19 U/L (13-40) Alanine Aminotransferase (ALT) 9 U/L (7-40) Alkaline Phosphatase 298 U/L (46-116) Total Protein 6.2 g/dL (5.7-8.2) Albumin 3.7 g/dL (3.2-4.8) Treponema pallidum Antibody Non-reactive (Negative) Hepatitis C Antibody Negative (Negative) Other Laboratory Tests 08/14/25 08:18 08/11/25 13:38 Brief Hx & Hospital Course: Ms. Whiteside was admitted on 08/13/25 at 39w 0d EGA for Repeat Section. She has GDMA1, anemia, h/o section x1. and desires a repeat section. She had Section under Spinal anesthesia (See Operative Note for details) Normal post-operative and course thus far; meeting milestones w/o any sign of infection or any complication. Operations or Procedures Repeat Section Condition at Discharge: Stable Final Diagnosis/Problems List SAME Discharge Disposition: Home Discharge Instruct/Medications Diet: Regular Diet comment: Routine regular diet rich in fiber, protein, iron and vitamin C with adequate fluid intake. Activity: See Comment Activity comment: Advance as tolerated. Balance activities with rest periods. No heavy lifting, pushing or straining. Pelvic rest x 6weeks Follow Up/Referral: Follow up with OB Provider in 1 week Medications: > Docusate Sodium > Hydrocodone- Acetaminophen > Ibuprofen > Vitamin > Ferrous Sulfate Scheduled Docusate Sodium (Colace), 1 CAP PO BID Vit W/ Ferrous Fumara ( One Daily), 1 TAB PO DAILY, (Reported) Scheduled PRN Hydrocodone-Acetaminophen (Hydrocodone/Acetaminophen 10-325 mg), 1 TAB PO Q6HPRN PRN Ibuprofen (Ibuprofen), 800 MG PO TID PRN Discharge Statement: > Post operative and self care instructions given. > emergency signs and symptoms including but not limited to pre- eclampsia precautions and signs of infection, PPH & of PPD reviewed with patient. > Follow up with OB Provider in 1 week "Patient was advised to return to the ER or call 911 if any headaches, dizziness, shortness of breath, chest pain, abdominal pain, bleeding, fevers, or worsening of medical condition. Patient was counseled about treatment plan, medications, possible side effects, patientverbalized understanding. All questions were answered to the best of my ability. This discharge took greater then 30 minutes in planning, reviewing documentation, counseling the patient, and discussing with other team members." ASSESSMENT ASSESSMENT Hospital Course Ms. Whiteside was admitted on 08/13/25 at 39w 0d EGA for Repeat Section. She has GDMA1, anemia, h/o section x1. and desires a repeat section. She had Section under Spinal anesthesia (See Operative Note for details) Normal post-operative and course thus far; meeting milestones w/o any sign of infection or any complication. Assessment SAME Visit Coding OBGYN Date of Service: Aug 15, 2025 Billing Provider: BENJAMIN BOURGEOIS CNM COMMUNITY LIAISON Common Visit Codes: 47074-AGT/OBS DISCH DAY >30MIN BENJAMIN BOURGEOIS CNM Aug 15, 2025 05:05
[2025-08-15 07:00] VITALS: BP 115/72; PULSE 100; RESP 18; TEMP 97.8; O2SAT 98
--- NOTE | 2025-08-15 08:59 | DVH ---
US LT Lower DVT History: LEFT FEMORAL FLOW Comparison: None Technique: Realtime grayscale, color flow, and Doppler ultrasound images of the deep venous structures with spectral waveform analysis were obtained. Doppler spectral waveform analysis of the left lower extremity veins was performed. Findings: Left common femoral vein: Normal compressibility and flow. Left femoral vein: Normal compressibility and flow. Left popliteal vein: Normal compressibility and flow. IMPRESSION: NO SONOGRAPHIC EVIDENCE FOR DEEP VENOUS THROMBOSIS IN THE left LOWER EXTREMITY VEINS.
--- NOTE | 2025-08-15 09:01 | DVH ---
INDICATION: R/O RPOC TECHNIQUE: Multiple real-time grayscale transabdominal sonographic images along with color and duplex Doppler of the uterus and ovaries were obtained. COMPARISON: None FINDINGS: The uterus measures 16.7 x 12.6 x 15.5 cm. Uterus appears heterogeneous. Endometrial canal not measure. The right ovary not visualized at this time. The left ovary not visualized at this time Subsequent color and duplex Doppler interrogation of the ovaries demonstrated symmetric vascular flow to both ovaries, though this does not exclude the possibility of torsion due to the dual blood supply. IMPRESSION: 1. Uterus appears heterogeneous and enlarged consistent with uterus. 2. Small amount of free fluid is noted in the lower uterine segment. 3. Ovaries not visualized at this time.
--- NOTE | 2025-08-15 09:03 | DVH ---
CLINICAL INDICATION: PELVIC XRAY TECHNIQUE: 1 radiographic views of the pelvis were obtained. Comparison: None FINDINGS/IMPRESSION: Proximal femurs are intact and normal alignment. There is no femoral fractures or dislocations. The superior inferior pubic rami appear to be intact normal alignment. Consider CT of the pelvis for further evaluation.
--- NOTE | 2025-08-15 09:50 | DVH ---
CLINICAL INDICATION: pAIN TECHNIQUE: 2 radiographic views of the abdomen were obtained. Comparison: None FINDINGS/IMPRESSION: There is no evidence of acute fracture or dislocation. The visualized joint space is well maintained. Large stool burden throughout the colon correlate clinically for possible constipation. The alignment is anatomical. There is no radiopaque foreign body.
[2025-08-15 11:00] VITALS: BP 109/72; PULSE 96; RESP 18; TEMP 98.1; O2SAT 97
[2025-08-15] MEDS: BISACODYL 10 MG RECT SUPP PR PRN (14:51)
[2025-08-15 15:05] VITALS: BP 114/73; PULSE 92; RESP 18; TEMP 98.7; O2SAT 99
[2025-08-15 19:00] VITALS: BP 121/82; PULSE 91; RESP 18; TEMP 98.1; O2SAT 98
[2025-08-15 23:30] VITALS: BP 114/82; PULSE 96; RESP 18; TEMP 98.3; O2SAT 99
--- NOTE | 2025-08-16 02:22 | DVHPN2 ---
Progress Note Date Seen: Aug 15, 2025 Subjective S: She reported left lower abdominal pain, swelling and tenderness of the pubis and left inguinal area. vital signs Vital Sign Date Time Temp Pulse Resp B/P (MAP) Pulse Ox O2 Delivery O2 Flow Rate FiO2 08/15/25 23:30 98.3 96 18 114/82 (93) 99 98.3 08/15/25 19:00 Room Air Total Intake and Output 08/15/25 08/15/25 08/16/25 15:00 23:00 07:00 Output Total 2 ml Balance -2 ml medications Current Medications Medications Dose Ordered Sig/Rowena Route Start Time Stop Time Status Last Admin Dose Admin Diphenhydramine HCl 25 mg Q4HP PRN IV 08/13/25 10:30 Ondansetron HCl 4 mg Q4HP PRN IV 08/13/25 10:30 Docusate Sodium 100 mg Q12HR PO 08/14/25 22:00 08/15/25 23:02 100 MG Dimethicone 80 mg QID PO 08/14/25 12:00 08/16/25 00:07 80 MG Ibuprofen 800 mg Q8HP PRN PO 08/14/25 10:15 08/15/25 18:45 800 MG Acetaminophen/ Hydrocodone Bitart 1 tab Q4HPRN PRN PO 08/14/25 10:15 Acetaminophen/ Hydrocodone Bitart 2 tab Q4HPRN PRN PO 08/14/25 10:15 08/15/25 23:02 2 TAB Bisacodyl 10 mg DAILYP PRN W[place] 08/15/25 12:00 08/15/25 14:51 10 MG laboratory and microbiology Laboratory Tests 08/14/25 08:18 08/11/25 13:38 Test 08/11/25 13:38 Range/Units Serum Glucose 96 74-106 mg/dL Objective O: Incision site w/o redness, swelling or induration. Pubis appears slightly indurated. Generalized abdominal tenderness to percussion and palpation, more in the left lower abd. Uterus now above umbilicus and remained displaced to the right even after emptying urinary bladder Assessment/Plan 30yo now Post operative & ppd #2 s/p Repeat Section, sudden change in clinical status, previously doing well. Pain control with PO medications Bowel regimen: Increase fluid intake and fiber in diet, Laxative PRN - Warm Prune juice Keep NPO until cause of abd tenderness is identified Discharge plan: Will Observe patient for today Possible post op gas build up causing abdominal pain r/o DVT r/o Acute Abdomen Abd X- Ray Doppler / Venous Studies of LLE Pelvic US Plan discussed with: Patient, Spouse Visit Coding OBGYN Date of Service: Sep 14, 2025 Billing Provider: BENJAMIN BOURGEOIS CNM GOLD ASSAYER Common Visit Codes: [id number] INP/OBS CARE(HIGH) BENJAMIN BOURGEOIS CNM Aug 16, 2025 02:22
--- NOTE | 2025-08-16 02:29 | DVHPN2 ---
Progress Note Date Seen: Aug 16, 2025 Subjective S: Lochia minimal. She reports abdominal pain has resolved. Regular diet well tolerated. Ambulating and voiding well w/o feeling dizzy or lightheaded. Pain relieved with oral analgesics. Has had BM three times. w/o problem, states that he milk has come in but not engorged Desires and Requests to be discharged today vital signs Vital Sign Date Time Temp Pulse Resp B/P (MAP) Pulse Ox O2 Delivery O2 Flow Rate FiO2 08/15/25 23:30 98.3 96 18 114/82 (93) 99 98.3 08/15/25 19:00 Room Air Total Intake and Output 08/15/25 08/15/25 08/16/25 15:00 23:00 07:00 Output Total 2 ml Balance -2 ml medications Current Medications Medications Dose Ordered Sig/Rowena Route Start Time Stop Time Status Last Admin Dose Admin Diphenhydramine HCl 25 mg Q4HP PRN IV 08/13/25 10:30 Ondansetron HCl 4 mg Q4HP PRN IV 08/13/25 10:30 Docusate Sodium 100 mg Q12HR PO 08/14/25 22:00 08/15/25 23:02 100 MG Dimethicone 80 mg QID PO 08/14/25 12:00 08/16/25 00:07 80 MG Ibuprofen 800 mg Q8HP PRN PO 08/14/25 10:15 08/15/25 18:45 800 MG Acetaminophen/ Hydrocodone Bitart 1 tab Q4HPRN PRN PO 08/14/25 10:15 Acetaminophen/ Hydrocodone Bitart 2 tab Q4HPRN PRN PO 08/14/25 10:15 08/15/25 23:02 2 TAB Bisacodyl 10 mg DAILYP PRN ID 08/15/25 12:00 08/15/25 14:51 10 MG laboratory and microbiology Laboratory Tests 08/14/25 08:18 08/11/25 13:38 Test 08/11/25 13:38 Range/Units Serum Glucose 96 74-106 mg/dL Objective A&O x3 NAD. Afebrile, VSS Chest: heart and lung sounds normal. Breasts: Nipples intact w/o cracks or soreness Abdomen: normal BS, soft, non-tender, no rebound or guarding, fundus firm @ U- 1, Lower abdominal Incision site with Sylke dressing on, same clean, dry and intact. No edema, erythema or induration Extremities: no edema or tenderness Lochia - minimal Assessment/Plan _A/P: > 30yo now Post operative & ppd #3 s/p Repeat Section, currently doing well. Blood Type:O Rh: Positive Anemia Constipation Breast feeding Rubella Immune Pain control with oral medications Bowel regimen: Increase fluid intake and fiber in diet, Laxative PRN PP BCM Plan:Depo Injection Discharge plan: May discharge home later today if condition remains stable Plan discussed with: Patient, Spouse Visit Coding OBGYN Date of Service: Aug 16, 2025 Billing Provider: BENJAMIN BOURGEOIS CNM MECH[employer]ICAL FIELD ENGINEER Common Visit Codes: [id number] INP/OBS CARE(HIGH) BENJAMIN BOURGEOIS CNM Aug 16, 2025 02:29
--- NOTE | 2025-08-16 02:38 | DVHDS2 ---
Discharge Summary Date of Admission Aug 13, 2025 at 04:59 Date of Discharge: Aug 15, 2025 Admitting Diagnosis <> IUP at 39w <> h/o Section <> GDMA1 <> Anemia <> Desires Repeat Section Wounds: Lower abdominal incition with Sylke dressing on, same C/D/I Labs/Diagnostic Data: Laboratory Results Test 08/14/25 08:18 08/13/25 05:38 08/11/25 17:59 08/11/25 17:58 White Blood Count 9.1 10^3/uL (4.4-10.8) Red Blood Count 3.71 10^6/uL (4.0-5.20) Hemoglobin 9.7 g/dL (12.2-16.2) Hematocrit 30.0 % (36.0-46.0) Mean Corpuscular Volume 80.7 fL (80.0-100.0) Mean Corpuscular Hemoglobin 26.2 pg (28.0-32.0) Mean Corpuscular Hemoglobin Concent 32.4 g/dL (32.0-36.0) Red Cell Distribution Width 15.1 % (11.8-14.3) Platelet Count 266 10^3/uL (140-450) Mean Platelet Volume 8.0 fL (6.9-10.8) Neutrophils (%) (Auto) 80.2 % (37.0-80.0) Lymphocytes (%) (Auto) 10.2 % (10.0-50.0) Monocytes (%) (Auto) 7.9 % (0.0-12.0) Eosinophils (%) (Auto) 1.0 % (0.0-7.0) Basophils (%) (Auto) 0.7 % (0.0-2.0) Neutrophils # (Auto) 7.3 10 ^3/uL (1.6-8.6) Lymphocytes # (Auto) 0.9 10 ^3/uL (0.4-5.4) Monocytes # (Auto) 0.7 10 ^3/uL (0-1.3) Eosinophils # (Auto) 0.1 10 ^3/uL (0-0.8) Basophils # (Auto) 0.1 10 ^3/uL (0-0.2) Nucleated Red Blood Cells 0.3 % POC Glucose 99 mg/dl (70-106) Urine Color Light-yellow (Yellow) Urine Clarity Clear (Clear) Urine pH 7.5 (5.0-9.0) Urine Specific [place] 1.009 (1.001-1.035) Urine Protein Negative (Negative) Urine Ketones Negative (Negative) Urine Blood Negative /uL (Negative) Urine Nitrite Negative (Negative) Urine Bilirubin Negative (Negative) Urine Urobilinogen Normal mg/dL (Negative) Urine Leukocyte Esterase Negative /uL (Negative) Urine RBC <1 /hpf (0 - 4) Urine Microscopic WBC < 1 /HPF (0-5) Urine Squamous Epithelial Cells Few /hpf (<5) Urine Bacteria Few /hpf (None Seen) Urine Glucose Normal mg/dL (Normal) Urine Opiates Screen Neg (NEGATIVE) Urine Fentanyl Screen Neg (NEGATIVE) Urine Barbiturates Screen Neg (NEGATIVE) Urine Phencyclidine Screen Neg (NEGATIVE) Urine Amphetamines Screen Neg (NEGATIVE) Urine Benzodiazepines Screen Neg (NEGATIVE) Urine Cocaine Screen Neg (NEGATIVE) Urine Cannabinoids Screen Neg (NEGATIVE) Test 08/11/25 13:38 Prothrombin Time 9.8 sec (9.3-11.8) Prothrombin Time INR 0.92 (0.9-1.15) Activated Partial Thromboplast Time 27.6 SEC (24.5-34.5) Sodium Level 140 mmol/L (136-145) Potassium Level 3.8 mmol/L (3.5-5.1) Chloride Level 106 mmol/L (98-107) Carbon Dioxide Level 24 mmol/L (20-31) Anion Gap 10 (5-15) Blood Urea Nitrogen 7 mg/dL (9-23) Creatinine 0.77 mg/dL (0.550-1.02) Glomerular Filtration Rate Calc 106 mL/min (>90) BUN/Creatinine Ratio 9.1 (10.0-20.0) Serum Glucose 96 mg/dL (74-106) Calcium Level 8.9 mg/dL (8.7-10.4) Total Bilirubin 0.6 mg/dL (0.2-1.0) Aspartate Amino Transferase (AST) 19 U/L (13-40) Alanine Aminotransferase (ALT) 9 U/L (7-40) Alkaline Phosphatase 298 U/L (46-116) Total Protein 6.2 g/dL (5.7-8.2) Albumin 3.7 g/dL (3.2-4.8) Treponema pallidum Antibody Non-reactive (Negative) Hepatitis C Antibody Negative (Negative) Other Laboratory Tests 08/14/25 08:18 08/11/25 13:38 Brief Hx & Hospital Course: Ms. Whiteside was admitted on 08/13/25 at 39w 0d EGA for Repeat Section. She has GDMA1, anemia, h/o section x1. and desires a repeat section. She had Section under Spinal anesthesia (See Operative Note for details) Post-operative and course complicated by severe constipation and gas pain. Same relieved with pharmacologic and non-pharmacologic measures. She is now meeting milestones after bowel movement three times. She has no sign of infection or of any other complication. Operations or Procedures Repeat Section Condition at Discharge: Stable Final Diagnosis/Problems List SAME Discharge Disposition: Home Discharge Instruct/Medications Diet: Regular Diet comment: Routine regular diet rich in fiber, protein, iron and vitamin C with adequate fluid intake. Activity: See Comment Activity comment: Advance as tolerated. Balance activities with rest periods. No heavy lifting, pushing or straining. Pelvic rest x 6weeks Follow Up/Referral: Follow up with OB Provider in 1 week Medications: > Docusate Sodium > Hydrocodone- Acetaminophen > Ibuprofen > Vitamin > Ferrous Sulfate Scheduled Docusate Sodium (Colace), 1 CAP PO BID Vit W/ Ferrous Fumara ( One Daily), 1 TAB PO DAILY, (Reported) Scheduled PRN Hydrocodone-Acetaminophen (Hydrocodone/Acetaminophen 10-325 mg), 1 TAB PO Q6HPRN PRN Ibuprofen (Ibuprofen), 800 MG PO TID PRN Discharge Statement: > Post operative and self care instructions given. > emergency signs and symptoms including but not limited to pre- eclampsia precautions and signs of infection, PPH \\& of PPD reviewed with patient. > Follow up with OB Provider in 1 week "Patient was advised to return to the ER or call 911 if any headaches, dizziness, shortness of breath, chest pain, abdominal pain, bleeding, fevers, or worsening of medical condition. Patient was counseled about treatment plan, medications, possible side effects, patientverbalized understanding. All questions were answered to the best of my ability. This discharge took greater then 30 minutes in planning, reviewing documentation, counseling the patient, and discussing with other team members." ASSESSMENT ASSESSMENT Hospital Course Ms. Whiteside was admitted on 08/13/25 at 39w 0d EGA for Repeat Section. She has GDMA1, anemia, h/o section x1. and desires a repeat section. She had Section under Spinal anesthesia (See Operative Note for details) Post-operative and course complicated by severe constipation and gas pain. Same relieved and now meeting milestones after bowel movement three times. She has no sign of infection or of any other complication. Assessment SAME Problems: (1) Constipation, acute Assessments: Responsive to Interventions Visit Coding OBGYN Date of Service: Aug 16, 2025 Billing Provider: BENJAMIN BOURGEOIS CNM TRANSPORT SPECIALIST Common Visit Codes: [id number]/[id number] DISCH DAY >30MIN BENJAMIN BOURGEOIS CNM Aug 16, 2025 02:38
[2025-08-16 03:00] VITALS: BP 125/74; PULSE 91; RESP 16; TEMP 98.5; O2SAT 99
[2025-08-16 07:00] VITALS: BP 121/74; PULSE 93; RESP 16; TEMP 98; O2SAT 97
[2025-08-16 13:07] LABS: Chlamydia Trachomatis, NAA Negative (Negative); Neisseria gonorrhoeae, NAA Negative (Negative)
== END 2025-08-16 11:32 | disposition home or self-care (01) | DRG 540 ==
LOC: LDRP 04:59
PROVIDERS: ADMIT Obstetrics & Gynecology; ATTEND Obstetrics & Gynecology
PROC: 10D00Z1 Extraction of Products of Conception, Low, Open Approach (ICD-10-PCS; principal; 2025-08-13 08:48)
DX: O34.211 Maternal care for low transverse scar from previous cesarean delivery (principal); K59.00 Constipation, unspecified; O24.420 Gestational diabetes mellitus in childbirth, diet controlled; Z37.0 Single live birth; Z3A.39 39 weeks gestation of pregnancy; O90.81 Anemia of the puerperium
CPT/HCPCS: 36415; 59025; 72170; 74021; 76856; 80053; 80307; 81001; 81002; 82948; 82962; 85025; 85610; 85730; 86780; 86803; 86850; 86900; 86901; 93971; 94760; 94762; 96360; 96361; 96374; G0378; J0131; J0169; J1885; J2250; J2405; J2590; J3490